=== PATIENT | male | born 1970 | race Caucasian/White ===

== ENCOUNTER 2018-03-28 11:41 | Emergency (ER) | payer MEDICAID ==
[~2018-03-28] VITALS: Ht 182.9 cm; Wt 115.5 kg
[2018-03-28] MEDS ORDERED: ASPIRIN 81 MG TABLET CHEW PO ONE (12:00)
[2018-03-28 12:35] LABS: BASOPHILS # (AUTO) 0.03 x10^3/uL (0-0.1); BASOPHILS % (AUTO) 0 % (0-1); EOSINOPHILS # (AUTO) 0.21 x10^3/uL (0-0.4); EOSINOPHILS % (AUTO) 3 % (1-7); LYMPHOCYTES # (AUTO) 1.66 x10^3/uL (1-3.4); LYMPHOCYTES % (AUTO) 23 % (22-44); MD NO; MEAN CORPUSCULAR HGB CONC 34.8 g/dL (33.2-36.2); MEAN CORPUSCULAR VOLUME 91.9 fL (81-97); MEAN PLATELET VOLUME 9.9 fL (7.4-10.4); MONOCYTES # (AUTO) 0.51 x10^3/uL (0.2-0.8); MONOCYTES % (AUTO) 7 % (2-9); NEUTROPHILS % (AUTO) 67 % (42-75); PLATELET COUNT 220 x10^3/uL (130-400); RED BLOOD COUNT 5.16 x10^6/uL (4.38-5.82); RED CELL DISTRIBUTION WIDTH 12.4 % (9.4-14.8)
[2018-03-28 12:41] LABS: ALBUMIN 3.9 g/dL (3.4-5.0); ANION GAP 8 mmol/L (5-15); CALCIUM 8.3 mg/dL (8.5-10.1); CHLORIDE 107 mmol/L (98-107)
[2018-03-28 12:48] LABS: ALANINE AMINOTRANSFERASE 63 U/L (12-78); ALKALINE PHOSPHATASE 61 U/L (45-117); BILIRUBIN,TOTAL 2.2 mg/dL (0.2-1.0); CREATININE 1.52 mg/dL (0.7-1.3); TOTAL PROTEIN 7.5 g/dL (6.4-8.2); TROPONIN I < 0.015 ng/mL (0.000-0.045)
[2018-03-28] MEDS ORDERED: ASPIRIN 81 MG TABLET CHEW ONE (13:46)
[2018-03-28 13:54] VITALS: BP 137/97
[2018-03-28] MEDS ORDERED: AMOX125T PO (14:07)
[2018-03-28] MEDS ORDERED: TESTOSTERONE IM (14:07)
== END 2018-03-28 14:20 | disposition home or self-care (01) ==
LOC: ED 14:14
DX: R07.89 Other chest pain (principal); N28.9 Disorder of kidney and ureter, unspecified; L70.9 Acne, unspecified
CPT/HCPCS: 36415; 71046; 80053; 84484; 85025; 93005; 99285